=== PATIENT | male | born 1965 | race Caucasian/White ===

== ENCOUNTER 2016-12-05 21:27 | Emergency (ER) | payer OTHER ==
--- NOTE | ~2016-12-05 | ER ---
PATIENT'S NAME: SVETLANA RAMIREZ [facility] AGE: 51 Y [address] ROOM: [place] [address] LOCATION: [facility] ADMIT DATE: 12/05/2016 ER/Outpatient Report DISCHARGE DATE: 12/05/2016 FAMILY PHYSICIAN: Sae Holm PA-C ATTENDING PHYSICIAN: Magdaleno Cerna Admission date and time documented on the medical record. I saw the patient at 2145 hours. CHIEF COMPLAINT: A 4-day history of bleeding from penis. HISTORY OF PRESENT ILLNESS: This patient is a 51-year-old male, who had an incident that started this past Saturday. He was having intercourse with his , and after ejaculating he had bleeding from his penis. He got another erection 2 to 3 hours later and started peeing blood. Both times, the bleeding stopped when his erection resolved. He is able to urinate okay without dysuria, frequency, urgency. He has not had any fever, chills, or sweats. No abdominal pain, back pain. Not having very much pain in his penis. No history of any testicular problems, inguinal hernias. He woke up Saturday night from sleep with an erection and was peeing blood. He has not had any further erections. Since Saturday night. He has been urinating okay. He saw his personal physician this afternoon. His personal physician talked with Urology, and they wanted him to come to [facility] for evaluation. The patient did have to go home and do some farm chores and ended up coming from [place] and arriving in [facility] about 2130 hours. On arrival, the patient states that he is not having any pain. He does have some bruising around his meatus, glans penis. He apparently had some red blood cells in his urine in [place] this afternoon. Again, no fever, chills, or sweats. No other illnesses. He is not any on any anticoagulants or aspirin. Not really having any history of medical problems. HOME MEDICATIONS: Vitamins. ALLERGIES: NONE. SOCIAL HISTORY: Nonsmoker. Does drink alcohol. Does chew tobacco. SIGNIFICANT PAST MEDICAL HISTORY: Negative except for alcohol and tobacco use. PATIENT'S NAME: SVETLANA RAMIREZ [facility] AGE: 51 Y [address] ROOM: [place], [place] [address] LOCATION: [facility] ADMIT DATE: 12/05/2016 ER/Outpatient Report DISCHARGE DATE: 12/05/2016 FAMILY PHYSICIAN: Sae Holm PA-C ATTENDING PHYSICIAN: Magdaleno Cerna OPERATIONS: Heart catheterization. REVIEW OF SYSTEMS: All systems reviewed by me are negative with the exception of those discussed in the history of present illness. PHYSICAL EXAMINATION: VITAL SIGNS: Temperature 98 Temporal Scanner, pulse 95, respirations 16, blood pressure 142/96, O2 saturation on room air is 96%. LUNGS: Clear. HEART: Regular. ABDOMEN: Soft, nondistended, nontender. Active bowel tones. No organomegaly or abnormal mass palpable. No CVA tenderness. GENITALIA: Normal external male genitalia. Bilaterally descended testes, nontender, no masses. No inguinal herniation on digital exam. Penis is nontender. No swelling. No redness. There was some bruising around the meatus of the glans penis. Otherwise, his penis is normal in appearance and on exam. NEUROVASCULAR: Intact. LABORATORY DATA AND X-RAYS: Urinalysis was clear. No leukocytes, no blood on dipstick, nitrites negative. CMS was normal except for a slight low potassium 3.5, elevated AST is 69. White count is 5300, 61 segs, 26 lymphs, 8 monos, 3 eos, 1 baso. Hemoglobin is 14.7, hematocrit 40.9, platelet count is 213,000. PTT is 24, pro-time is 10 with an INR 0.95. IMPRESSION: Urethral bleeding with penile erection, etiology uncertain, but most likely secondary to urethral tear and injury. PLAN: I did discuss this patient with Dr. Hagan, urologist. Dr. Hagan was aware of this patient. Apparently, 3 or 4 of the [facility]rologists [facility] did discuss this patient, and their consensus was that the patient should get a Galindo catheter and have the Galindo catheter in place for at least a week to see if this will allow healing of the urethral tear. I did discuss my findings and recommendations with the patient and also discussed with the patient Dr. Hagan' recommendations. We did place an 18-Sammarinese Galindo catheter to dependent drainage. We did give the patient today a regular bag and a leg bag. Went over care of Galindo catheter. Fluids and diet as tolerated. Continue present home medications and care. Did send him home on some VESIcare 5 mg once a day, #7. He is to contact his personal physician, and either his personal physician will remove the catheter in 7 days or he PATIENT'S NAME: SVETLANA RAMIREZ [facility] AGE: 51 Y [address] ROOM: [place] [address] LOCATION: [facility] ADMIT DATE: 12/05/2016 ER/Outpatient Report DISCHARGE DATE: 12/05/2016 FAMILY PHYSICIAN: Sae Holm PA-C ATTENDING PHYSICIAN: Magdaleno Cerna will come to [facility] to have it removed in 7 days, then proceed on their recommendations thereafter. Again, I did discuss this with the patient. He understands and agrees with treatment plan. MD LAZ VALLEJO/jackson /[id number] d: 12/06/164 t: 12/06/16 1810, OUTPATIENT REPORT
[2016-12-05 22:18] LABS: BILIRUBIN URINE NEGATIVE (NEGATIVE); BLOOD URINE NEGATIVE /UL (NEGATIVE); COLOR URINE STRAW (YELLOW); GLUCOSE URINE NEGATIVE (NEGATIVE); KETONE URINE NEGATIVE (NEGATIVE); LEUKOCYTES URINE NEGATIVE /UL (NEGATIVE); NITRITE URINE NEGATIVE (NEGATIVE); PROTEIN URINE NEGATIVE (NEGATIVE); TURBIDITY URINE CLEAR (CLEAR); UROBILINOGEN URINE NORMAL (NORMAL)
[2016-12-05 22:25] LABS: BASOPHIL # 0.1 K/uL (0.0-0.2); BASOPHIL % 1.3 %; EOSINOPHIL # 0.2 K/uL (0.0-0.5); EOSINOPHIL % 2.8 %; HEMATOCRIT 40.9 % (37.0-53.0); HEMOGLOBIN 14.7 g/dL (12.0-17.0); IMMATURE GRANULOCYTE % 0.2 %; LYMPHOCYTE # 1.4 K/uL (0.8-4.0); LYMPHOCYTE % 26.1 %; MCH 33.8 pg (27.0-34.0); MCHC 35.9 gm/dL (32.0-36.5); MONOCYTE # 0.4 K/uL (0.0-1.0); MONOCYTE % 8.3 %; MPV 9.8 fl (9.4-12.4); NEUTROPHIL # (ANC) 3.3 K/uL (1.4-9.0); NEUTROPHIL % 61.3 %; NRBC % 0 /100WBC (0-0.00); PLATELET COUNT 213 K/uL (150-450); RBC 4.35 M/uL (4.00-6.00); RDW-CV 11.9 % (11.9-14.6); WBC 5.3 K/uL (4.0-11.0)
[2016-12-05 22:36] LABS: INR - (THERAPEUTIC) 0.95 (0.92-1.07); PTT 24 SECONDS (25-32)
[2016-12-05 22:42] LABS: ALBUMIN 3.9 gm/dL (3.5-5.0); ANION GAP 12.5 (10.0-19.0); CALCIUM 8.7 mg/dL (8.5-10.5); POTASSIUM 3.5 mMol/L (3.7-5.1); TOTAL BILIRUBIN 0.8 mg/dL (0.0-1.5); TOTAL PROTEIN 7.6 g/dL (6.0-8.4)
== END 2016-12-05 23:39 | disposition disaster alternative care site (69) ==
LOC: GMED 21:27
PROVIDERS: Emergency Medicine
PROC: 0T2BX0Z Change Drainage Device in Bladder, External Approach (ICD-10-PCS; principal; 2016-12-05)
DX: N36.8 Other specified disorders of urethra (principal); Z95.828 Presence of other vascular implants and grafts